=== PATIENT | male | born 1940 | race Caucasian/White ===

== ENCOUNTER 2023-05-30 03:47 | Emergency (ER) | payer MEDICARE ==
[2023-05-30] VITALS (13 sets, daily range): BP systolic 130–195; BP diastolic 81–120
[~2023-05-30] VITALS: Ht 182.9 cm; Wt 85.0 kg
[2023-05-30 04:22] LABS: BASO% 0.8 % (0-3); EOS% 3.9 % (0-8); HEMATOCRIT 47.2 % (39.0-50.0); HEMOGLOBIN 15.2 g/dl (14.0-18.0); IMMATURE GRANULOCYTES 0.5 % (0.0-5.0); LYMPH% 40.9 % (15-41); MEAN CELL VOLUME 90.1 fL CALC (80.0-100.0); MEAN CORPUSCULAR HGB CONC 32.2 g/dL CAL (32.0-36.0); MONO% 11.1 % (2-13); NEUT# 2.65 thou/uL (1.82-7.42); NEUT% 42.8 % (42-76); RED BLOOD COUNT 5.24 mill/uL (4.70-6.10); RED CELL DISTRI WIDTH 14.4 % (11.5-15.5)
[2023-05-30 04:28] LABS: ALBUMIN 4.7 g/dL (3.2-5.0); BILIRUBIN, TOTAL 0.9 mg/dL (0.2-1.3); CREATININE 1.4 mg/dL (0.7-1.3); POTASSIUM 3.6 mmol/l (3.5-5.1); TOTAL PROTEIN 8.1 g/dL (6.3-8.2)
[2023-05-30 04:37] LABS: ACT PARTIAL THROMBO TIME 28.4 SECONDS (20.0-32.5); INTERNATIONAL NORMALIZED RATIO 1.1 RATIO (0.7-1.3); PROTHROMBIN TIME 10.6 SECONDS (9.0-12.5)
[2023-05-30 04:40] LABS: D-DIMER 0.73 mg/L (0.19-0.60)
== END 2023-05-30 06:20 | disposition short-term general hospital (02) ==
LOC: ED 03:47
PROVIDERS: Family Medicine
DX: R07.9 Chest pain, unspecified (principal); R79.89 Other specified abnormal findings of blood chemistry; I10 Essential (primary) hypertension; E78.5 Hyperlipidemia, unspecified; I69.954 Hemiplegia and hemiparesis following unspecified cerebrovascular disease affecting left non-dominant side; T39.016A Underdosing of aspirin, initial encounter; Z91.128 Patient's intentional underdosing of medication regimen for other reason
CPT/HCPCS: J1650